=== PATIENT | female | born 1955 | race Caucasian/White ===

== ENCOUNTER 2022-06-09 09:23 | Day surgery (SDC) | payer OTHER ==
[~2022-06-09] VITALS: Ht 154.9 cm; Wt 54.4 kg
[~2022-06-09 09:23] MED LIST: fentaNYL citrate 0.05 MG/ML VIAL IVP ONE
[2022-06-09] MEDS ORDERED: fentaNYL citrate 0.05 MG/ML VIAL ONE (12:01)
[2022-06-09] MEDS ORDERED: MIDAZOLAM 5 MG/5 ML VIAL ONE (12:01)
[2022-06-09] MEDS ORDERED: LIDOCAINE 2% 100 MG/5 ML UJET TP ONE (12:02)
[2022-06-15] MEDS ORDERED: fentaNYL citrate 0.05 MG/ML VIAL IVP ONE (07:50)
== END 2022-06-09 13:45 | disposition home or self-care (01) ==
LOC: MOR 09:23 → MMU 09:23 → MOR 13:45
PROVIDERS: ATTEND Internal Medicine Gastroenterology
DX: Z12.11 Encounter for screening for malignant neoplasm of colon (principal); I10 Essential (primary) hypertension; E11.9 Type 2 diabetes mellitus without complications; E78.00 Pure hypercholesterolemia, unspecified; Z79.82 Long term (current) use of aspirin; Z79.899 Other long term (current) drug therapy; Z79.84 Long term (current) use of oral hypoglycemic drugs; Z90.49 Acquired absence of other specified parts of digestive tract
CPT/HCPCS: 45378; 87426; J3010; J2250